=== PATIENT | female | born 1990 | race Caucasian/White ===

== ENCOUNTER 2021-12-28 00:38 | Emergency (ER) | payer OTHER ==
[~2021-12-28] VITALS: Ht 172.7 cm; Wt 72.6 kg
--- NOTE | 2021-12-28 00:56 | NUR ---
Patient ambulatory with steady gait. NAD noted. A/O x2.
[2021-12-28] MEDS ORDERED: LORAZEPAM 2 MG/1 ML VIAL IV ONE (01:00)
--- NOTE | 2021-12-28 01:00 | NUR ---
Dr. Cueva at bedside. MSE in progress.
[2021-12-28] MEDS ORDERED: LORAZEPAM 2 MG/1 ML VIAL ONE (01:11)
[2021-12-28 02:07] LABS: ALANINE AMINOTRANSFERASE 24 U/L (14-59); ALKALINE PHOSPHATASE 51 U/L (50-136); ASPARTATE AMINOTRANSFERASE 11 U/L (15-37); BILIRUBIN,DIRECT 0.1 mg/dL (0.0-0.2); BILIRUBIN,TOTAL 0.5 mg/dL (0.2-1.0); CARBON DIOXIDE 28 mmol/L (21-32); CHLORIDE 103 mmol/L (98-107); CREATININE 0.9 mg/dL (0.6-1.3); GLUCOSE 107 mg/dL (74-106); HEMATOCRIT 35.4 % (31.2-41.9); MEAN CORPUSCULAR HEMOGLOBIN 27.7 uug (24.7-32.8); MEAN CORPUSCULAR VOLUME 84.4 fL (75.5-95.3); PLATELET COUNT (AUTO) 221 K/uL (179-408); POTASSIUM 3.9 mmol/L (3.5-5.1); TOTAL PROTEIN, SERUM 7.5 g/dL (6.4-8.2); UREA NITROGEN, BLOOD 8 mg/dL (7-18)
--- NOTE | 2021-12-28 05:05 | NUR ---
Patient discharged to home in stable condition. A/O x4. NAD noted. All belongings with patient. Ambulatory with steady gait. Written and verbal after care instructions given. Patient verbalizes understanding of instructions. Stressed follow up or return to ER for worsening s/s.
[2021-12-28 05:11] VITALS: BP 111/50
== END 2021-12-28 05:05 | disposition home or self-care (01) ==
LOC: ER 00:47
DX: R07.9 Chest pain, unspecified (principal); F17.290 Nicotine dependence, other tobacco product, uncomplicated; F15.90 Other stimulant use, unspecified, uncomplicated
CPT/HCPCS: 99285; 96374; 71045; 99406; 80076; 80048; 85025; 84484 ×2; 36415; 93005; J2060; A4663